=== PATIENT | female | born 1995 | race Hispanic/Latino ===

== ENCOUNTER 2017-08-30 21:16 | Emergency (ER) | payer OTHER, SELFPAY ==
[2017-08-30] MEDS ORDERED: Ondansetron HCl/PF 4 MG/2 ML Vial ONE (21:43)
[2017-08-30 22:04] LABS: #Lymphocytes 1.7 thou/uL (1.20-3.40); #Monocytes 0.4 thou/uL (0.11-0.59); #Neutrophils 5.2 thou/uL (1.40-6.50); %Basophils 0.4 % (0.0-1.0); %Eosinophils 0.6 % (0.0-10.0); %Lymphocytes 23.4 % (21.0-51.0); %Monocytes 5.6 % (0.0-10.0); Hematocrit 46.8 % (36.0-47.0); Mean Platelet Volume 7.7 fL (7.4-10.4); Red Blood Cell (RBC) Count 5.32 mill/uL (4.20-5.40); White Blood Cell (WBC) Count 7.4 thou/uL (4.8-10.8)
[2017-08-30 22:17] LABS: ALT (SGPT) 15 U/L (8-55); AST (SGOT) 14 U/L (5-34); Alkaline Phosphatase 60 U/L (40-150); Anion Gap 12 mmol/L (10-20); BUN (Urea Nitrogen) 11 mg/dL (7.0-18.7); Calc. Creatinine Clearance 0 mL/min (70-130); Calcium 8.9 mg/dL (7.8-10.44); Carbon Dioxide 21 mmol/L (22-29); Chloride 108 mmol/L (98-107); Estimated GFR-MDRD Greater than 90; Globulin 2.7 g/dL (2.4-3.5); Protein, Total 6.6 g/dL (6.0-8.3)
== END 2017-08-30 22:50 | disposition home or self-care (01) ==
LOC: ERS 21:16
DX: K52.9 Noninfective gastroenteritis and colitis, unspecified (principal); R06.4 Hyperventilation; F41.9 Anxiety disorder, unspecified
CPT/HCPCS: 80053; 85025; 96361; 96374; J2405

== ENCOUNTER 2018-07-11 17:59 | Emergency (ER) | payer SELFPAY ==
[2018-07-11 18:22] LABS: Bilirubin Negative (Negative); Blood, Urine Negative (Negative); Clarity CLOUDY (Clear); Glucose, Urine (Dipstick) Negative (Negative); Leukocyte Small (Negative); Nitrite Negative (Negative); Protein, Urine (Dipstick) Negative (Neg-Trace); Specific Gravity, Urine 1.027 (1.002-1.036)
[2018-07-11 18:25] LABS: Pregnancy Test - Urine (BHCG) Negative (Negative); Pregu Control Background? CLEAR/WHITE (CLR/WHITE); Pregu Control Bar Appear? YES (CONTROL BAR); Specific Gravity 1.027 (1.002-1.036)
[2018-07-11 18:27] LABS: Bacteria/HPF 1+ HPF (None Seen); Hyaline Casts/LPF 0-3 HYALINE CAST LPF (0-3 Hyaline); Pathc Cast-AUWi Flag 0.29 (0-2.49); RBC/HPF 0-3 HPF (0-3); WBC/HPF 0-3 HPF (0-3)
[2018-07-11 18:57] LABS: #Basophils 0.1 thou/uL (0.0-0.2); #Eosinphils 0.1 thou/uL (0.0-0.7); #Lymphocytes 2.4 thou/uL (1.20-3.40); #Monocytes 0.5 thou/uL (0.11-0.59); #Neutrophils 3.4 thou/uL (1.40-6.50); %Lymphocytes 36.8 % (21.0-51.0); %Neutrophils 52.3 % (42.0-75.0); Hemoglobin 14.6 g/dL (12.0-16.0); Mean Corpuscular HGB CONC 33.2 g/dL (32.0-36.0); Mean Corpuscular Hemoglobin 29.9 pg (27.0-31.0); Mean Corpuscular Volume 89.9 fL (78.0-98.0); Mean Platelet Volume 8.1 fL (7.4-10.4); Platelet Count 220 thou/uL (130-400); White Blood Cell (WBC) Count 6.4 thou/uL (4.8-10.8)
[2018-07-11 19:19] LABS: ALT (SGPT) 21 U/L (8-55); AST (SGOT) 24 U/L (5-34); Albumin 4.1 g/dL (3.5-5.0); Alkaline Phosphatase 73 U/L (40-150); Anion Gap 14 mmol/L (10-20); BUN (Urea Nitrogen) 14 mg/dL (7.0-18.7); Bilirubin, Total 0.5 mg/dL (0.2-1.2); Calc. Creatinine Clearance 0 mL/min (70-130); Calcium 9.1 mg/dL (7.8-10.44); Carbon Dioxide 19 mmol/L (22-29); Chloride 111 mmol/L (98-107); Estimated GFR-MDRD Greater than 90; Glucose 78 mg/dL (70-105); Lipase 26 U/L (8-78); Potassium 4.2 mmol/L (3.5-5.1); Protein, Total 7.1 g/dL (6.0-8.3); Sodium 140 mmol/L (136-145)
[2018-07-11] MEDS ORDERED: Morphine 4 MG/ML VIAL ONE (19:28)
[2018-07-11] MEDS ORDERED: Ondansetron HCl/PF 4 MG/2 ML Vial ONE (19:29)
--- NOTE | 2018-07-11 21:08 | ULT ---
RIGHT UPPER QUADRANT ULTRASOUND: 07/11/18 HISTORY: Right upper quadrant abdominal pain, nausea, vomiting and diarrhea. FINDINGS: There is mild diminished attenuation of the liver relative to the right kidney suggesting mild fatty infiltration. The liver otherwise has a normal sonographic appearance. The visualized portions of the pancreas, visualized portions of the IVC, gallbladder, and right kidne y demonstrate a normal sonographic appearance. The right kidney measures 9.4 cm in length. The common duct measures 0.3 cm in diameter which is within normal limits. IMPRESSION: 1. Mild fatty infiltration of the liver. 2. No gallbladder calculi are seen, and the common duct is normal in caliber. POS: [facility]
== END 2018-07-11 21:15 | disposition home or self-care (01) ==
LOC: ERS 17:59
DX: R11.2 Nausea with vomiting, unspecified (principal); R10.12 Left upper quadrant pain; R10.11 Right upper quadrant pain; F41.9 Anxiety disorder, unspecified
CPT/HCPCS: 36415; 76705; 80053; 81003; 81015; 81025; 83690; 85025; 87804; 96361; 96374; 96375; J2270; J2405

== ENCOUNTER 2019-03-09 16:17 | Emergency (ER) | payer OTHER ==
[2019-03-09 17:04] LABS: #Eosinphils 0.1 thou/uL (0.0-0.7); #Monocytes 0.4 thou/uL (0.11-0.59); #Neutrophils 5.8 thou/uL (1.40-6.50); %Basophils 0.1 % (0.0-1.0); %Eosinophils 1.8 % (0.0-10.0); %Lymphocytes 24.1 % (21.0-51.0); %Monocytes 4.5 % (0.0-10.0); %Neutrophils 69.5 % (42.0-75.0); Hemoglobin 13.5 g/dL (12.0-16.0); Mean Corpuscular HGB CONC 34.5 g/dL (32.0-36.0); Mean Corpuscular Hemoglobin 31.1 pg (27.0-31.0); Mean Platelet Volume 8.5 fL (7.4-10.4); Platelet Count 196 thou/uL (130-400); RBC Distribution Width 12.9 % (11.5-14.5); Red Blood Cell (RBC) Count 4.36 mill/uL (4.20-5.40); White Blood Cell (WBC) Count 8.3 thou/uL (4.8-10.8)
[2019-03-09 17:06] LABS: Bilirubin Negative (Negative); Blood, Urine Moderate (Negative); Clarity CLOUDY (Clear); Glucose, Urine (Dipstick) Negative (Negative); Leukocyte Trace (Negative); Nitrite Negative (Negative); Protein, Urine (Dipstick) Negative (Neg-Trace); Specific Gravity, Urine 1.004 (1.002-1.036)
[2019-03-09 17:08] LABS: Bacteria/HPF None Seen HPF (None Seen); Hyaline Casts/LPF 0-3 HYALINE CAST LPF (0-3 Hyaline); RBC/HPF 0-3 HPF (0-3); Squamous Epithelial 0-3 HPF (0-3); WBC/HPF 0-3 HPF (0-3)
[2019-03-09 17:21] LABS: ALT (SGPT) 47 U/L (8-55); AST (SGOT) 27 U/L (5-34); Albumin 3.9 g/dL (3.5-5.0); Alkaline Phosphatase 69 U/L (40-150); Anion Gap 13 mmol/L (10-20); BUN (Urea Nitrogen) 7 mg/dL (7.0-18.7); Bilirubin, Total 0.5 mg/dL (0.2-1.2); Calc. Creatinine Clearance 0 mL/min (70-130); Calcium 9.2 mg/dL (7.8-10.44); Carbon Dioxide 20 mmol/L (22-29); Chloride 107 mmol/L (98-107); Estimated GFR-MDRD Greater than 90; Globulin 3.2 g/dL (2.4-3.5); Glucose 91 mg/dL (70-105); Lipase 32 U/L (8-78); Potassium 3.6 mmol/L (3.5-5.1); Protein, Total 7.1 g/dL (6.0-8.3); Sodium 136 mmol/L (136-145)
--- NOTE | 2019-03-09 17:43 | ULT ---
US Pelvic W Doppler History: Pelvic pain Comparison: None. Findings: Real-time grayscale, color, and spectral analysis of the gravid uterus performed transabdom inal approach. Single viable intrauterine with average ultrasound age 19 week 4 day with estimated date of delivery July 30, 2019. Estimated weight is 11 ounces. Biometry: Biparietal diameter: 19 week 3 day, 4.42 cm Head circumference: 19 weeks 6 day, 17.38 cm Abdominal circumference: 20 week 1 day, 14.9 cm Femur length: 19 week 5 day, 3.13 cm The position is transverse in the placenta is to the right. Amniotic fluid is adequate. Visuali zed spine, kidneys, cerebellum, three-vessel cord, posterior fossa, nose/lips, stomach are unremarkable. Heart rate documented at 135 bpm. Impression: Normal single viable intrauterine .
== END 2019-03-09 18:43 | disposition home or self-care (01) ==
LOC: ERS 16:17
DX: O20.9 Hemorrhage in early pregnancy, unspecified (principal); O99.342 Other mental disorders complicating pregnancy, second trimester; F41.9 Anxiety disorder, unspecified; O99.612 Diseases of the digestive system complicating pregnancy, second trimester; K58.9 Irritable bowel syndrome, unspecified; Z3A.19 19 weeks gestation of pregnancy
CPT/HCPCS: 76856; 80053; 81003; 81015; 83690; 84702; 85025; 93976; 94760; 96360; 96361

== ENCOUNTER 2019-12-31 16:15 | Emergency (ER) | payer OTHER, SELFPAY ==
[2019-12-31] MEDS ORDERED: Metoclopramide 10 MG/10 ML UDCUP ONE (16:32)
[2019-12-31] MEDS ORDERED: Metoclopramide HCl 10 MG/2 ML VIAL ONE (16:33)
[2019-12-31 17:10] LABS: #Basophils 0.1 thou/uL (0.0-0.2); #Lymphocytes 1.8 thou/uL (1.20-3.40); #Monocytes 0.5 thou/uL (0.11-0.59); #Neutrophils 4.7 thou/uL (1.40-6.50); %Basophils 1.2 % (0.0-1.0); %Eosinophils 0.7 % (0.0-10.0); %Lymphocytes 24.7 % (21.0-51.0); %Monocytes 6.6 % (0.0-10.0); %Neutrophils 66.8 % (42.0-75.0); Hemoglobin 14.5 g/dL (12.0-16.0); Mean Corpuscular HGB CONC 31.3 g/dL (32.0-36.0); Mean Corpuscular Volume 89.5 fL (78.0-98.0); Mean Platelet Volume 8.5 fL (7.4-10.4); Platelet Count 245 thou/uL (130-400); RBC Distribution Width 11.8 % (11.5-14.5); Red Blood Cell (RBC) Count 5.19 mill/uL (4.20-5.40); White Blood Cell (WBC) Count 7.1 thou/uL (4.8-10.8)
[2019-12-31 17:11] LABS: BHCG - Serum POSITIVE (NEGATIVE); Pregs Control Background? CLEAR/WHITE (CLR/WHITE); Pregs Control Bar Appear? YES (CONTROL BAR)
[2019-12-31 17:28] LABS: Anion Gap 11 mmol/L (10-20); BUN (Urea Nitrogen) 12 mg/dL (7.0-18.7); Calc. Creatinine Clearance 0 mL/min (70-130); Calcium 9.8 mg/dL (7.8-10.44); Carbon Dioxide 24 mmol/L (22-29); Chloride 106 mmol/L (98-107); Estimated GFR-MDRD Greater than 90; Glucose 89 mg/dL (70-105); Potassium 3.6 mmol/L (3.5-5.1); Sodium 137 mmol/L (136-145)
[2019-12-31 17:29] LABS: Bacteria/HPF None Seen HPF (None Seen); Bilirubin Negative (Negative); Blood, Urine Negative (Negative); Clarity Turbid (Clear); Glucose, Urine (Dipstick) Normal (Negative); Leukocyte 250 Leu/uL (Negative); Nitrite Negative (Negative); Protein, Urine (Dipstick) 20 mg/dL (Neg-Trace); RBC/HPF 0-3 HPF (0-3); Squamous Epithelial 21-50 HPF (0-3)
--- NOTE | 2019-12-31 17:59 | ULT ---
Obstetric sonogram transabdominal and transvaginal imaging with duplex evaluation HISTORY: Early . Pelvic pain. FINDINGS: Slightly retroverted uterus. Gestational sac within the endometrial cavity contains a yolk sac and pole. Heart motion at 162 bpm. Measurements correlate with 8 weeks 0 days gestational size, giving an estimated date of delivery of 08/11/2020. Anterior to the gestational sac is an irreg ular shaped fluid collection at the subchorionic space, measuring 4.5 cm length by 2.5 cm depth by 4.2 cm width. No free fluid in the pelvis. Each ovary contains follicles and demonstrates good color and spectral Doppler flow. Distended venous structures at the right adnexa suggest pelvic venous congestion or ovarian vein varix. IMPRESSION : Single intrauterine gestation. Estimated gestational age 8 weeks 0 days. Fairly large subchorionic he matoma.
== END 2019-12-31 18:58 | disposition home or self-care (01) ==
LOC: ERS 16:15
DX: O99.89 Other specified diseases and conditions complicating pregnancy, childbirth and the puerperium (principal); R10.9 Unspecified abdominal pain; R10.817 Generalized abdominal tenderness; O99.611 Diseases of the digestive system complicating pregnancy, first trimester; K58.9 Irritable bowel syndrome, unspecified; O99.341 Other mental disorders complicating pregnancy, first trimester; F41.9 Anxiety disorder, unspecified; Z79.899 Other long term (current) drug therapy
CPT/HCPCS: 76856; 80048; 81003; 81015; 84702; 84703; 85025; 86900; 86901; 96361; 96374; J2765

== ENCOUNTER 2020-01-21 11:25 | Emergency (ER) | payer SELFPAY ==
[2020-01-21 12:34] LABS: #Lymphocytes 1.7 thou/uL (1.20-3.40); #Monocytes 0.4 thou/uL (0.11-0.59); #Neutrophils 5.2 thou/uL (1.40-6.50); %Basophils 0.2 % (0.0-1.0); %Eosinophils 0.4 % (0.0-10.0); %Monocytes 5.1 % (0.0-10.0); %Neutrophils 71.2 % (42.0-75.0); Hemoglobin 13.4 g/dL (12.0-16.0); Mean Corpuscular HGB CONC 33.3 g/dL (32.0-36.0); Mean Corpuscular Hemoglobin 29.6 pg (27.0-31.0); Mean Corpuscular Volume 88.9 fL (78.0-98.0); Mean Platelet Volume 8.1 fL (7.4-10.4); Platelet Count 217 thou/uL (130-400); RBC Distribution Width 11.7 % (11.5-14.5); Red Blood Cell (RBC) Count 4.53 mill/uL (4.20-5.40); White Blood Cell (WBC) Count 7.2 thou/uL (4.8-10.8)
--- NOTE | 2020-01-21 12:35 | ULT ---
EXAM: US Gallbladder RUQ CLINICAL HISTORY: Right upper quadrant pain. COMPARISON: 07/11/2018 FINDINGS: Pancreas: The head of the pancreas is normal in echotexture. The remainder the pancreas is obscured by bowel gas Liver:Hepatic parenchyma has a normal echotexture. No hepatic masses or intrahepatic biliary dilatati on. Right hepatic lobe: 17.5 cm Gallbladder: Contracted gallbladder due to nonfasting state. No sonographic evidence of cholelithiasi s, gallbladder wall thickening or pericholecystic fluid Rocha's sign:Negative Portal Vein: Patent. Appropriate directional flow Bile ducts: 0.3 cm common bile duct diameter Right kidney: No hydronephrosis. Right kidney measures 10.8 cm cm in length. IMPRESSION: 1. Contracted gallbladder due to nonfasting state. No sonographic evidence of cholelithiasis or power cystitis.
[2020-01-21 12:49] LABS: Bilirubin Negative (Negative); Blood, Urine Negative (Negative); Clarity Clear (Clear); Glucose, Urine (Dipstick) Normal (Negative); Leukocyte Negative Leu/uL (Negative); Nitrite Negative (Negative); Protein, Urine (Dipstick) Negative (Neg-Trace); Urobilinogen Normal mg/dL (Less than 2)
[2020-01-21 12:50] LABS: Pregnancy Test - Urine (BHCG) POSITIVE (Negative); Pregu Control Background? CLEAR/WHITE (CLR/WHITE); Pregu Control Bar Appear? YES (CONTROL BAR); Specific Gravity 1.005 (1.002-1.036)
[2020-01-21 12:53] LABS: ALT (SGPT) 15 U/L (8-55); AST (SGOT) 16 U/L (5-34); Albumin 3.9 g/dL (3.5-5.0); Alkaline Phosphatase 72 U/L (40-110); Anion Gap 13 mmol/L (10-20); BUN (Urea Nitrogen) 7 mg/dL (7.0-18.7); Bilirubin, Total 0.5 mg/dL (0.2-1.2); Calc. Creatinine Clearance 0 mL/min (70-130); Calcium 9.3 mg/dL (7.8-10.44); Carbon Dioxide 21 mmol/L (22-29); Chloride 106 mmol/L (98-107); Estimated GFR-MDRD Greater than 90; Globulin 3.1 g/dL (2.4-3.5); Glucose 87 mg/dL (70-105); Lipase 14 U/L (8-78); Sodium 136 mmol/L (136-145)
--- NOTE | 2020-01-21 12:58 | ULT ---
Exam: Pelvic ultrasound HISTORY: Pelvic pain, abdominal cramping for one month. 11 week . COMPARISON: 12/31/2019 TECHNIQUE: Multiple grayscale and color Doppler images were obtained in a transabdominal pelvic ultra sound. Spectral analysis of the Doppler waveforms of the ovaries were performed. FINDINGS: CERVIX: Appears within normal limits where visualized. Cervical length measures 4 cm. UTERUS AND ENDOMETRIUM: Again noted is evidence of a single intrauterine gestation. Cardiac Doppler d emonstrates heart tones with a heart rate of 165 bpm. [place]-rump length measures approximately 4.6 cm corresponding to gestational age by ultrasound of 11 weeks and 3 days. Gestation al age by last menstrual period is 9 weeks and 1 day. Again noted is a curvilinear subchorionic collection at the anterior inferior aspect of the gestational sac again most suggestive of a subchori onic hemorrhage which measures 4.5 cm x 1.5 cm x 4.5 cm. The subchorionic hemorrhage has not significantly changed in size compared to prior exam. RIGHT OVARY: Normal flow, without focal mass. LEFT OVARY: Normal flow, without focal mass. No free fluid is seen in the cul-de-sac. IMPRESSION: 1. Large subchorionic hemorrhage not significantly changed in size compared to the prior exam. 2. Single intrauterine gestation with heart tones documented. Gestational age by crown-rump [facility] is 11 weeks and 3 days.
== END 2020-01-21 13:34 | disposition home or self-care (01) ==
LOC: ERS 11:25
DX: O99.89 Other specified diseases and conditions complicating pregnancy, childbirth and the puerperium (principal); R10.9 Unspecified abdominal pain; O99.611 Diseases of the digestive system complicating pregnancy, first trimester; K58.9 Irritable bowel syndrome, unspecified; Z3A.11 11 weeks gestation of pregnancy
CPT/HCPCS: 36415; 76705; 76856; 80053; 81003; 81025; 83690; 84702; 85025; 93976